=== PATIENT | male | born 1950 | race Caucasian/White ===

== ENCOUNTER 2017-07-28 15:48 | Inpatient (IN) | payer MEDICARE ==
[2017-07-28 16:00] VITALS: BP 132/90; PULSE 111; RESP 14; TEMP 99.2; O2SAT 100
[2017-07-28] MEDS: SODIUM CHLOR 0.9% 1000 ML INJ 1,000 ML IV SCH (16:39)
[2017-07-28] MEDS ORDERED: POTASSIUM CHLOR 40 MEQ PREMIX 100 ML IV PRN ×2 (16:45)
[2017-07-28] MEDS ORDERED: MAGNESIUM OXIDE 400 MG TAB PO PRN (16:45)
[2017-07-28] MEDS ORDERED: BISACODYL 10 MG SUPP RECTAL PRN (16:45)
[2017-07-28] MEDS ORDERED: MAGNESIUM SULFATE INJ 2 GM in SODIUM CHLORIDE 0.9% INJ 96 ML IV PRN (16:45)
[2017-07-28] MEDS ORDERED: POTASSIUM CHLORIDE 25 MEQ EFFERVESCENT TAB PO PRN (16:45)
[2017-07-28] MEDS ORDERED: POTASSIUM CHLOR 20 MEQ PREMIX 100 ML IV PRN ×2 (16:45)
[2017-07-28] MEDS ORDERED: LACTULOSE SYRUP 20 GM/30 ML CUP PO PRN (16:45)
[2017-07-28] MEDS ORDERED: NURSING INFORMATION XX SCH (16:45)
[2017-07-28] MEDS ORDERED: SENNOSIDES 8.6 MG TAB PO PRN (16:45)
[2017-07-28] MEDS ORDERED: POTASSIUM PHOSPHATE INJ 30 MMOL in SODIUM CHLOR 0.9% 250 ML INJ 250 ML IV PRN (16:45)
[2017-07-28] MEDS ORDERED: SODIUM PHOSPHATE INJ 30 MMOL in SODIUM CHLOR 0.9% 250 ML INJ 240 ML IV PRN (16:45)
[2017-07-28] MEDS ORDERED: MAGNESIUM SULFATE INJ 4 GM in SODIUM CHLORIDE 0.9% INJ 92 ML IV PRN (16:45)
[2017-07-28] MEDS ORDERED: ACETAMINOPHEN 325 MG TAB PO PRN (16:45)
[2017-07-28] MEDS ORDERED: POTASSIUM PHOSPHATE MONOBASIC 500 MG TAB PO/TUBE PRN (16:45)
[2017-07-28] MEDS ORDERED: MAGNESIUM HYDROXIDE SUSP 30 ML CUP PO PRN (16:45)
[2017-07-28] MEDS ORDERED: RESP: ALBUTEROL 2.5 MG/IPRATROPIUM 0.5 MG NEB (PRN) INH (16:45)
[2017-07-28] MEDS ORDERED: oxyCODONE/ACETAMINOPHEN 5 MG/325 MG TAB PO PRN (16:45)
[2017-07-28] MEDS ORDERED: ONDANSETRON HCL 4 MG/2 ML VIAL IV PUSH PRN (16:45)
[2017-07-28] MEDS ORDERED: CHLORHEXIDINE GLUCONATE 2 % 1 PACK (2 CLOTHS) TOP PRN (16:45)
[2017-07-28] MEDS ORDERED: POTASSIUM PHOSPHATE MONOBASIC 500 MG TAB PO PRN (16:45)
--- NOTE | 2017-07-28 16:51 | HHI.HP ---
HPI Service Critical Care Medicine Primary Care Physician Unknown Admission Diagnosis Tonsil abscess Diagnosis: Chief Complaint: Sore throat, difficulty swallowing Travel History International Travel<30 Days: No Contact w/Intl Traveler <30 Da: No Traveled to Known Affected Are: No History of Present Illness 67-year-old gentleman from [facility] presented to the [facility] emergency department this morning with a 3 day history of worsening sore throat and difficulty swallowing. He is tender to the external surface of his right neck as well. Neck CT reveals a abscess in the region of the right palatine tonsil measuring 2 cm x 3.2 cm x 2.3 cm. Noteworthy is that there is considerable surrounding adenopathy including the upper mediastinum. He received antibiotics in the form of clindamycin and steroids and was transferred to the [facility] at [facility] where I met him on his arrival. He is indeed having difficulty swallowing although his airway is widely patent. His immediate care will be complicated by chronic Coumadin use for permanent atrial fibrillation and porcine aortic valve replacement. He is also on dual antiplatelet therapy in the form of aspirin and Plavix for coronary artery stents. A permanent pacemaker/defibrillator is in place. Th pertinent laboratory from today at [facility] includes white blood cell count 13,100, hematocrit 40.7, platelet count 183,000. Prothrombin time is 15.7 and INR 1.4. Creatinine is 1.01 and BUN 13. Next. The gentleman is breathing comfortably now but does have shortness of breath with exertion. [facility] Review of Systems Constitutional: DENIES: Diaphoretic episodes, Fatigue, Fever, Weight gain, Weight loss, Chills, Dizziness, Change in appetite, Night Sweats Endocrine: DENIES: Heat/cold intolerance, Polydipsia, Polyuria, Polyphagia Eyes: DENIES: Blurred vision, Diplopia, Eye inflammation, Eye pain, Vision loss , Photosensitivity, Double Vision Ears, nose, mouth, throat: COMPLAINS OF: Throat pain, Hoarseness Respiratory: COMPLAINS OF: Shortness of breath Cardiovascular: COMPLAINS OF: Dyspnea on Exertion Gastrointestinal: DENIES: Abdominal pain, Black stools, Bloody stools, Constipation, Diarrhea, Nausea, Vomiting, Difficulty Swallowing, Anorexia Hematologic/lymphatic: DENIES: Bruising, Lymphadenopathy Psychiatric: DENIES: Anxiety, Confusion, Mood changes, Depression, Hallucinations, Agitation, Suicidal Ideation, Homicidal Ideation, Delusions Past Family Social History Allergies: Coded Allergies: Penicillins (Verified Allergy, Severe, Anaphylaxis, 07/28/17) Past Medical History Atrial fibrillation, permanent Permanent pacemaker/cardio defibrillator next Prosthetic aortic valve, porcine Coronary artery disease, stents Reported Medications Medications: 1. Aspirin 81 mg daily 2. Carvedilol 3.12 mg p.o. twice daily 3. Plavix 75 mg p.o. daily 4. Cyclobenzaprine 5 mg p.o. nightly 5. Furosemide 20 mg p.o. daily 6. Lisinopril 2.5 mg p.o. daily 6. Trazodone 50 mg p.o. at bedtime Physical Exam Vital Signs Vital Signs Date Time Temp Pulse Resp B/P (MAP) Pulse Ox O2 Delivery O2 Flow Rate FiO2 07/28/17 16:00 99.2 111 14 132/90 (104) 100 07/28/17 16:00 100 Nasal Cannula 4.00 07/28/17 16:00 111 Physical Exam General: Anxious middle-aged man Head: Atraumatic, normal Throat: Generalized swelling right tonsil region, erythematous mucosa. Neck: Supple, right anterior triangle tender to palpation. Tender lymph nodes palpable. Constant gurgling sounds but he is able to move air well. Lungs: Few crackles, good bilateral air movement, light wheezes. Heart: Regular rate and rhythm, 2/6 systolic murmur high right sternal border, neck veins are full but not tensely distended. Abdomen: Large, soft, nondistended, no guarding, bowel sounds are present. Extremities: Warm well perfused Neuro: Conversant but hoarse speech. Oriented 3 and cooperative. Moves 4 limbs with 5/5 strength. Alert Caprini VTE Risk Assessment Caprini VTE Risk Assessment: Mod/High Risk (score >= 2) VTE Pharm Contraindication: High risk for bleeding Caprini Risk Assessment Model Point Value = 1 Point Value = 2 Point Value = 3 Point Value = 5 Age 41-60 Minor surgery BMI > 25 kg/m2 Swollen legs Varicose veins or History of unexplained or recurrent spontaneous Oral contraceptives or hormone replacement Sepsis (< 1 month) Serious lung disease, including pneumonia (< 1 month) Abnormal pulmonary function Acute myocardial infarction Congestive heart failure (< 1 month) History of inflammatory bowel disease Medical patient at bed rest Age 61-74 Arthroscopic surgery Major open surgery (> 45 min) Laparoscopic surgery (> 45 min) Malignancy Confined to bed (> 72 hours) Immobilizing plaster cast Central venous access Age >= 75 History of VTE Family history of VTE Factor V Leiden Prothrombin [id number] Lupus anticoagulant Anticardiolipin antibodies Elevated serum homocysteine Heparin-induced thrombocytopenia Other congenital or acquired thrombophilia Stroke (< 1 month) Elective arthroplasty Hip, pelvis, or leg fracture Acute spinal cord injury (< 1 month) Prophylaxis Regimen Total Risk Factor Score Risk Level Prophylaxis Regimen 0-1 Low Early ambulation 2 Moderate Order ONE of the following: *Sequential Compression Device (SCD) *Heparin 5000 units SQ BID 3-4 Higher Order ONE of the following medications: *Heparin 5000 units SQ TID *Enoxaparin/Lovenox 40 mg SQ daily (WT < 150 kg, CrCl > 30 mL/min) *Enoxaparin/Lovenox 30 mg SQ daily (WT < 150 kg, CrCl > 10-29 mL/min) *Enoxaparin/Lovenox 30 mg SQ BID (WT < 150 kg, CrCl > 30 mL/min) AND/OR *Sequential Compression Device (SCD) 5 or more Highest Order ONE of the following medications: *Heparin 5000 units SQ TID (Preferred with Epidurals) *Enoxaparin/Lovenox 40 mg SQ daily (WT < 150 kg, CrCl > 30 mL/min) *Enoxaparin/Lovenox 30 mg SQ daily (WT < 150 kg, CrCl > 10-29 mL/min) *Enoxaparin/Lovenox 30 mg SQ BID (WT < 150 kg, CrCl > 30 mL/min) AND *Sequential Compression Device (SCD) Assessment and Plan Assessment and Plan Assessment: 1. Right tonsillar abscess. 2. Upper airway obstruction. 3. Paroxysmal atrial fibrillation. 4. Coronary artery disease status post stent placement, DAPT 5. Permanent pacemaker defibrillator. 6. Status post aortic valve replacement, bioprosthesis 7. History of systolic heart failure. 8. Essential hypertension. Plan: 1. Clindamycin antibiotic therapy. 2. Strep antigen 3. Limit to liquid diet. 4. Decadron scheduled. 5. Pepcid for GI ulcer prophylaxis. 6. SCDs for DVT prophylaxis. 7. Continue daily diuretic therapy. 8. Cardiac echo to assess residual ventricular function. 9. Airway precautions. 10. Intravenous morphine for pain control. Overall impression: This gentleman is critically ill with an acute peritonsillar abscess and significant neck swelling. He is drooling and has had difficulty swallowing for several days. He is not choking on his secretions but his airway is clearly compromised. Further he has chronic systolic heart failure and appears to have light wheezing. Residual left ventricular function should be assessed. Dual antiplatelet therapy makes bleeding problems predictable and we might try to delay a day or 2 if necessary. Rather than purposely reverse his warfarin anticoagulation it may be prudent to hold the drug and allow it to receive the effect naturally. Critical care 45 minutes aside from procedures Ty Guillory MD July 28, 2017 16:51
[2017-07-28] MEDS ORDERED: MORPHINE SULFATE 4 MG/ML INJ IV PUSH PRN (17:30)
[2017-07-28] MEDS: DEXAMETHASONE SOD PHOS 4 MG/ML VIAL IV PUSH SCH (17:57)
[2017-07-28] MEDS ORDERED: PILL SPLITTER OTHER PRN (18:00)
--- NOTE | 2017-07-28 18:22 | RADRPT ---
EXAM DATE/TIME: 07/28/2017 17:41 [place] COMPARISON: No previous studies available for comparison. INDICATIONS : Shortness of breath. MEDICAL HISTORY : None. SURGICAL HISTORY : Pacemaker. ENCOUNTER: Initial ACUITY: 1 day PAIN SCORE: 0/10 LOCATION: Bilateral chest FINDINGS: There is interstitial infiltrates bilaterally. The heart size is mildly enlarged. No significant pleu ral effusions are seen. There is evidence of previous cardiothoracic surgery. There is a pacemaker wi re in the left chest. No pneumothorax. CONCLUSION: Bilateral interstitial infiltrates suggestive of either pulmonary edema versus pneumonia. Dennis Evans MD on July 28, 2017 at 18:19 Board Certified Radiologist. This report was verified electronically.
--- NOTE | 2017-07-28 18:35 | EKG ---
Date Performed: 07/28/2017 Time Performed: 17:00:15 PTAGE: 67 years EKG: SINUS TACHYCARDIA MODERATE INTRAVENTRICULAR CONDUCTION DELAY ST DEVIATION AND MODERATE T-WA VE ABNORMALITY ABNORMAL ECG NO PREVIOUS TRACING DOCTOR: Leighann Gutierrez Interpretating Date/Time 07/28/2017 18:33:55
[2017-07-28] MEDS: RESP: ALBUTEROL 2.5 MG/IPRATROPIUM 0.5 MG NEB (SCH) NEB (19:59)
[2017-07-28 20:00] VITALS: BP 127/82; PULSE 100; RESP 25; TEMP 99.3; O2SAT 100; O2SAT 99
[2017-07-28] MEDS: CARVEDILOL 3.125 MG TAB PO SCH (20:02)
[2017-07-28] MEDS: CLINDAMYCIN 900 MG/NS PREMIX 50 ML IV SCH (20:02)
[2017-07-28] MEDS: CYCLOBENZAPRINE HCL 10 MG TAB PO SCH (20:02)
[2017-07-28] MEDS: DOCUSATE SODIUM 50 MG/SENNA 8.6 MG TAB PO SCH (20:03)
[2017-07-28] MEDS: FAMOTIDINE 20 MG TAB PO SCH (20:03)
[2017-07-28] MEDS: traZODone HCL 50 MG TAB PO SCH (20:03)
[2017-07-28] MEDS: MAGNESIUM SULFATE 1 GM PREMIX 100 ML IV SCH ×2 (21:46→22:30)
[2017-07-28 22:00] VITALS: PULSE 96
[2017-07-29] VITALS (18 sets, daily range): BP systolic 100–106; BP diastolic 59–72; PULSE 74–94; RESP 12–24; TEMP 97.4–99.5; O2SAT 93–100
[2017-07-29] MEDS: DEXAMETHASONE SOD PHOS 4 MG/ML VIAL IV PUSH SCH ×4 (01:08→18:10)
[2017-07-29] MEDS: CLINDAMYCIN 900 MG/NS PREMIX 50 ML IV SCH ×4 (01:09→19:42)
[2017-07-29 03:37] LABS: AUTOMATED NEUTROPHIL # 12.5 TH/MM3 (1.8-7.7); BASOPHIL # 0.3 TH/MM3 (0-0.2); BASOPHIL % 2.1 % (0.0-2.0); HEMATOCRIT 38.5 % (39.0-51.0); HEMOGLOBIN 12.6 GM/DL (13.0-17.0); LYMPH % 3.1 % (9.0-44.0); LYMPHOCYTE # 0.4 TH/MM3 (1.0-4.8); MEAN CELL VOLUME 85.8 FL (80.0-100.0); MEAN CORPUSCULAR HGB CONC 32.7 % (32.0-36.0); MEAN PLATELET VOLUME 9.2 FL (7.0-11.0); MONO % 2.3 % (0.0-8.0); MONOCYTE # 0.3 TH/MM3 (0-0.9); NEUT % 92.5 % (16.0-70.0); PLATELET COUNT 175 TH/MM3 (150-450); RED BLOOD COUNT 4.48 MIL/MM3 (4.50-5.90); RED CELL DISTRIBUTION WIDTH 16.7 % (11.6-17.2); WHITE BLOOD COUNT 13.5 TH/MM3 (4.0-11.0)
[2017-07-29 03:45] LABS: INTERNATIONAL NORMALIZED RATIO 1.3 RATIO; PROTHROMBIN TIME - PATIENT 13.2 SEC (9.8-11.6)
[2017-07-29] MEDS: RESP: ALBUTEROL 2.5 MG/IPRATROPIUM 0.5 MG NEB (SCH) NEB ×4 (03:46→19:24)
[2017-07-29] MEDS: CHLORHEXIDINE GLUCONATE 2 % 1 PACK (2 CLOTHS) TOP SCH (04:00)
[2017-07-29 04:04] LABS: BICARBONATE 29.3 MEQ/L (21.0-32.0); CALCIUM 8.5 MG/DL (8.5-10.1); CREATININE 1.04 MG/DL (0.60-1.30)
[2017-07-29] MEDS: SODIUM CHLOR 0.9% 1000 ML INJ 1,000 ML IV SCH ×2 (04:34→16:29)
--- NOTE | 2017-07-29 07:09 | HHI.CCPN ---
Subjective Remarks/Hospital Course 67-year-old gentleman from [facility] presented to the [facility] emergency department this morning with a 3 day history of worsening sore throat and difficulty swallowing. He is tender to the external surface of his right neck as well. Neck CT reveals a abscess in the region of the right palatine tonsil measuring 2 cm x 3.2 cm x 2.3 cm. Noteworthy is that there is considerable surrounding adenopathy including the upper mediastinum. He received antibiotics in the form of clindamycin and steroids and was transferred to the [facility] at [facility] where I met him on his arrival. He is indeed having difficulty swallowing although his airway is widely patent. His immediate care will be complicated by chronic Coumadin use for permanent atrial fibrillation and porcine aortic valve replacement. He is also on dual antiplatelet therapy in the form of aspirin and Plavix for coronary artery stents. A permanent pacemaker/defibrillator is in place. Th pertinent laboratory from today at [facility] includes white blood cell count 13,100, hematocrit 40.7, platelet count 183,000. Prothrombin time is 15.7 and INR 1.4. Creatinine is 1.01 and BUN 13. Next. The gentleman is breathing comfortably now but does have shortness of breath with exertion. [facility] 07/29: Persistent pain right neck. Leukocytosis. Protects airway. Objective Vital Signs Date Time Temp Pulse Resp B/P (MAP) Pulse Ox O2 Delivery O2 Flow Rate FiO2 07/29/17 06:00 74 07/29/17 04:00 97.7 20 103/61 (75) 99 07/29/17 03:46 Nasal Cannula 2.00 Intake and Output 07/29/17 07/29/17 07/30/17 08:00 16:00 00:00 Intake Total 0 ml Balance 0 ml Result Diagram: 07/29/17 0228 07/29/17 0228 Other Results Microbiology Date/Time Source Procedure Growth Status 07/28/17 18:06 Throat Group A Streptococcus Screen (MELLISSA) - Final Complete Objective Remarks General: Anxious middle-aged man Head: Atraumatic, normal Throat: Generalized swelling right tonsil region, erythematous mucosa. Neck: Supple, right anterior triangle tender to palpation. Tender lymph nodes palpable. Persistent gurgling sounds but he is able to move air well. Frequent sictioning. Lungs: Few crackles, good bilateral air movement, light wheezes. Heart: Regular rate and rhythm, 3/6 systolic murmur high right sternal border, neck veins are full but not tensely distended. Abdomen: Large, soft, nondistended, no guarding, bowel sounds are present. Extremities: Warm, well perfused Neuro: Conversant but hoarse speech. Oriented 3 and cooperative. Moves 4 limbs with 5/5 strength. Alert A/P Assessment and Plan Assessment: 1. Right tonsillar abscess. 2. Upper airway obstruction. 3. Paroxysmal atrial fibrillation. 4. Coronary artery disease status post stent placement, DAPT 5. Permanent pacemaker defibrillator. 6. Status post aortic valve replacement, bioprosthesis 7. History of systolic heart failure. 8. Essential hypertension. Plan: 1. Clindamycin antibiotic therapy. 2. Strep antigen 3. Limit to liquid diet. 4. Decadron scheduled. 5. Pepcid for GI ulcer prophylaxis. 6. SCDs for DVT prophylaxis. 7. Continue daily diuretic therapy. 8. Cardiac echo to assess residual ventricular function. 9. Airway precautions. 10. Intravenous morphine for pain control. 11. Hold ASA and plavix. Overall impression: This gentleman is critically ill with an acute peritonsillar abscess and significant neck swelling. He is drooling and has had difficulty swallowing for several days. He is not choking on his secretions but his airway is clearly compromised. Further he has chronic systolic heart failure and light wheezing, improved with diuretics. Residual left ventricular function should be assessed. Hold dual antiplatelet therapy. Rather than purposely reverse his warfarin anticoagulation it may be prudent to hold the drug and allow it to receive the effect naturally -> normal INR today. Critical care 39 minutes aside from procedures Ty Guillory MD July 29, 2017 07:09
[2017-07-29] MEDS ORDERED: FUROSEMIDE 20 MG/2 ML VIAL IV PUSH SCH ×2 (08:00→09:00)
[2017-07-29] MEDS: FAMOTIDINE 20 MG TAB PO SCH ×2 (08:46→19:43)
[2017-07-29] MEDS: CARVEDILOL 3.125 MG TAB PO SCH ×2 (08:46→19:42)
[2017-07-29] MEDS: DOCUSATE SODIUM 50 MG/SENNA 8.6 MG TAB PO SCH ×2 (08:46→19:43)
[2017-07-29] MEDS: FUROSEMIDE 40 MG/4 ML VIAL IV PUSH SCH (08:47)
[2017-07-29] MEDS: traZODone HCL 50 MG TAB PO SCH (19:42)
[2017-07-29] MEDS: CYCLOBENZAPRINE HCL 10 MG TAB PO SCH (19:43)
[2017-07-30] VITALS (11 sets, daily range): BP systolic 100–120; BP diastolic 61–71; PULSE 78–99; RESP 12–21; TEMP 97.9–98.4; O2SAT 94–100
[2017-07-30] MEDS: CLINDAMYCIN 900 MG/NS PREMIX 50 ML IV SCH ×4 (01:14→21:24)
[2017-07-30] MEDS: DEXAMETHASONE SOD PHOS 4 MG/ML VIAL IV PUSH SCH ×4 (01:14→22:23)
[2017-07-30] MEDS: RESP: ALBUTEROL 2.5 MG/IPRATROPIUM 0.5 MG NEB (SCH) NEB ×3 (03:15→15:58)
[2017-07-30] MEDS: CHLORHEXIDINE GLUCONATE 2 % 1 PACK (2 CLOTHS) TOP SCH (04:14)
[2017-07-30 04:47] LABS: INTERNATIONAL NORMALIZED RATIO 1.6 RATIO; PROTHROMBIN TIME - PATIENT 16.4 SEC (9.8-11.6)
[2017-07-30 05:14] LABS: BICARBONATE 27.8 MEQ/L (21.0-32.0); CALCIUM 8.4 MG/DL (8.5-10.1); CREATININE 1.02 MG/DL (0.60-1.30)
[2017-07-30] MEDS: SODIUM CHLOR 0.9% 1000 ML INJ 1,000 ML IV SCH (05:44)
[2017-07-30] MEDS ORDERED: RESP: ALBUTEROL 2.5 MG/3 ML NEB (PRN) NEB (08:45)
--- NOTE | 2017-07-30 08:46 | HHI.CCPN ---
Subjective Remarks/Hospital Course 67-year-old gentleman from [facility] presented to the [facility] emergency department this morning with a 3 day history of worsening sore throat and difficulty swallowing. He is tender to the external surface of his right neck as well. Neck CT reveals a abscess in the region of the right palatine tonsil measuring 2 cm x 3.2 cm x 2.3 cm. Noteworthy is that there is considerable surrounding adenopathy including the upper mediastinum. He received antibiotics in the form of clindamycin and steroids and was transferred to the [facility] at [facility] where I met him on his arrival. He is indeed having difficulty swallowing although his airway is widely patent. His immediate care will be complicated by chronic Coumadin use for permanent atrial fibrillation and porcine aortic valve replacement. He is also on dual antiplatelet therapy in the form of aspirin and Plavix for coronary artery stents. A permanent pacemaker/defibrillator is in place. Th pertinent laboratory from today at [facility] includes white blood cell count 13,100, hematocrit 40.7, platelet count 183,000. Prothrombin time is 15.7 and INR 1.4. Creatinine is 1.01 and BUN 13. Next. The gentleman is breathing comfortably now but does have shortness of breath with exertion. [facility]. 07/29: Persistent pain right neck. Leukocytosis. Protects airway. SUBJECTIVE: 07/30: Voice much improved today. Adequately swallows. Protecting airway. Denies chest pain or shortness of breath. Cleared for regular diet per ENT. Objective Vital Signs Date Time Temp Pulse Resp B/P (MAP) Pulse Ox O2 Delivery O2 Flow Rate FiO2 07/30/17 06:00 80 07/30/17 04:00 98.1 21 102/64 (77) 100 07/29/17 19:25 Nasal Cannula 2.00 07/29/17 16:35 21 Intake and Output 07/30/17 07/30/17 07/30/17 07:59 15:59 23:59 Intake Total 240 ml Output Total 650 ml Balance -410 ml Result Diagram: 07/29/17 0228 07/30/17 0350 Other Results Microbiology Date/Time Source Procedure Growth Status 07/28/17 18:06 Throat Group A Streptococcus Screen - Preliminary NO BETA STREPTOCOCCI ISOLATED AT 24 H... Resulted Imaging Last Impressions Chest X-Ray 07/28/17 0000 Signed Impressions: Service Date/Time: Friday, July 28, 2017 17:41 - CONCLUSION: Bilateral interstitial infiltrates suggestive of either pulmonary edema versus pneumonia. Dennis Evans MD Objective Remarks General: 67-year-old AA male currently resting in bed in no acute distress Head: Atraumatic, normal Throat: Generalized swelling right tonsil region, erythematous mucosa. Neck: Supple, right anterior triangle tender to palpation. Tender lymph nodes palpable. Lungs: Few crackles, good bilateral air movement, light wheezes. Heart: Regular rate and rhythm, 3/6 systolic murmur high right sternal border, Abdomen: Large, soft, nondistended, no guarding, bowel sounds are present. Extremities: Warm, well perfused Neuro: Conversant but hoarse speech. Oriented 3 and cooperative. Moves 4 limbs with 5/5 strength. Alert Urinary Catheter: No Assessment to: Continue Vascular Central Line Catheter: No Assessment to: Continue A/P Assessment and Plan Assessment: 1. Right tonsillar abscess. 2. Upper airway obstruction. 3. Paroxysmal atrial fibrillation. 4. Coronary artery disease status post stent placement, DAPT 5. Permanent pacemaker defibrillator. 6. Status post aortic valve replacement, bioprosthesis 7. History of systolic heart failure. 8. Essential hypertension. 9. Leukocytosis 10. Normocytic anemia 11. Insomnia Plan: 1. Clindamycin antibiotic therapy at 900 mg IV every 6 hours. 2. Strep antigen was negative 3. Heart healthy diet. 4. Decadron scheduled 4 mg IV every 6 hours. 5. Pepcid for GI ulcer prophylaxis. 6. SCDs for DVT prophylaxis. 7. Continue daily diuretic therapy. 8. Cardiac echo to assess residual ventricular function. 9. Airway precautions. 10. Percocets/intravenous morphine for pain control. 11. Hold ASA and plavix. 12. Furosemide 40 mg IV daily gentle diuresis 13. Continue trazodone 50 mg at night 14. Continue carvedilol 3.2 mg p.o. twice daily for hypertension Level 2 follow-up Patient was evaluated by Dr. Peralta/ENT. Okay to transfer to floor. Likely okay home in a.m. 5/15 on antibiotics and steroid taper. Tod Bliss MD July 30, 2017 08:46
[2017-07-30] MEDS: DOCUSATE SODIUM 50 MG/SENNA 8.6 MG TAB PO SCH ×2 (09:00→21:24)
[2017-07-30] MEDS: CARVEDILOL 3.125 MG TAB PO SCH ×2 (09:08→21:24)
[2017-07-30] MEDS: FAMOTIDINE 20 MG TAB PO SCH ×2 (09:08→21:24)
[2017-07-30] MEDS: FUROSEMIDE 40 MG/4 ML VIAL IV PUSH SCH (09:08)
[2017-07-30] MEDS: traZODone HCL 50 MG TAB PO SCH (21:24)
[2017-07-30] MEDS: CYCLOBENZAPRINE HCL 10 MG TAB PO SCH (21:47)
[2017-07-31] VITALS: BP 99/70; PULSE 93; RESP 20; TEMP 97.7; O2SAT 96
[2017-07-31] MEDS: CLINDAMYCIN 900 MG/NS PREMIX 50 ML IV SCH ×3 (02:45→14:45)
[2017-07-31] MEDS: CHLORHEXIDINE GLUCONATE 2 % 1 PACK (2 CLOTHS) TOP SCH (03:22)
[2017-07-31 04:52] LABS: AUTOMATED NEUTROPHIL # 11.4 TH/MM3 (1.8-7.7); BASOPHIL % 0.1 % (0.0-2.0); HEMATOCRIT 36.2 % (39.0-51.0); HEMOGLOBIN 11.9 GM/DL (13.0-17.0); LYMPH % 9.3 % (9.0-44.0); LYMPHOCYTE # 1.2 TH/MM3 (1.0-4.8); MEAN CELL VOLUME 84.3 FL (80.0-100.0); MEAN CORPUSCULAR HEMOGLOBIN 27.7 PG (27.0-34.0); MEAN CORPUSCULAR HGB CONC 32.9 % (32.0-36.0); MEAN PLATELET VOLUME 9.5 FL (7.0-11.0); MONO % 3.9 % (0.0-8.0); MONOCYTE # 0.5 TH/MM3 (0-0.9); NEUT % 86.7 % (16.0-70.0); PLATELET COUNT 205 TH/MM3 (150-450); RED BLOOD COUNT 4.29 MIL/MM3 (4.50-5.90); RED CELL DISTRIBUTION WIDTH 16.9 % (11.6-17.2); WHITE BLOOD COUNT 13.1 TH/MM3 (4.0-11.0)
[2017-07-31] MEDS: DEXAMETHASONE SOD PHOS 4 MG/ML VIAL IV PUSH SCH ×2 (04:52→14:45)
[2017-07-31 04:54] LABS: INTERNATIONAL NORMALIZED RATIO 1.4 RATIO; PROTHROMBIN TIME - PATIENT 13.7 SEC (9.8-11.6)
[2017-07-31] MEDS: RESP: ALBUTEROL 2.5 MG/IPRATROPIUM 0.5 MG NEB (SCH) NEB ×3 (05:41→15:42)
[2017-07-31 05:56] LABS: AST (GOT) 40 U/L (15-37); BLOOD UREA NITROGEN 22 MG/DL (7-18); CALCIUM 8.4 MG/DL (8.5-10.1); CHLORIDE 103 MEQ/L (98-107); CREATININE 1.14 MG/DL (0.60-1.30); GLOMERULAR FILTRATION RATE 64 ML/MIN (>89); GLUCOSE,RANDOM 127 MG/DL (74-106); MAGNESIUM 2.3 MG/DL (1.5-2.5); SODIUM (NA) 140 MEQ/L (136-145)
[2017-07-31 05:57] LABS: ALT (GPT) 34 U/L (12-78); PHOSPHORUS 2.7 MG/DL (2.5-4.9)
[2017-07-31 05:59] LABS: ALKALINE PHOSPHATASE 189 U/L (45-117); TOTAL BILIRUBIN ADULT 0.5 MG/DL (0.2-1.0); TOTAL PROTEIN 7.6 GM/DL (6.4-8.2)
[2017-07-31 08:00] VITALS: BP 106/63; PULSE 87; RESP 19; TEMP 97.6; O2SAT 96
[2017-07-31] MEDS: FUROSEMIDE 40 MG/4 ML VIAL IV PUSH SCH (08:46)
[2017-07-31] MEDS: CARVEDILOL 3.125 MG TAB PO SCH (08:47)
[2017-07-31] MEDS: FAMOTIDINE 20 MG TAB PO SCH (08:47)
[2017-07-31] MEDS: DOCUSATE SODIUM 50 MG/SENNA 8.6 MG TAB PO SCH (08:47)
[2017-07-31 12:00] VITALS: BP 111/67; PULSE 92; RESP 19; TEMP 97.7; O2SAT 94
[2017-07-31] MEDS ORDERED: PRED5PAK PO (14:41)
[2017-07-31] MEDS ORDERED: CLIN300C5 PO (14:41)
--- NOTE | 2017-07-31 14:49 | HHI.DCPOC ---
Discharge Care Plan Diagnosis: (1) Tonsillar abscess (2) Paroxysmal atrial fibrillation (3) CAD (coronary artery disease) (4) Chronic systolic heart failure (5) HTN (hypertension) (6) Anemia Goals to Promote Your Health * To prevent worsening of your condition and complications * To maintain your health at the optimal level Directions to Meet Your Goals Take your medications as prescribed Follow your dietary instruction Follow activity as directed Keep your appointments as scheduled Take your immunizations and boosters as scheduled If your symptoms worsen call your PCP, if no PCP go to Urgent Care Center or Emergency Room Smoking is Dangerous to Your Health. Avoid second hand smoke Call the 24-hour hour crisis hotline for domestic abuse at Delbert Wilkinson MD July 31, 2017 14:49
--- NOTE | 2017-07-31 14:57 | HHI.DS ---
Discharge Summary Admission Date July 28, 2017 at 15:48 Discharge Date: July 31, 2017 Admitting Diagnosis Tonsil abscess (1) Acute on chronic heart failure ICD Code: I50.9 - Heart failure, unspecified (2) Tonsillar abscess ICD Code: J36 - Peritonsillar abscess (3) CAD (coronary artery disease) ICD Code: I25.10 - Atherosclerotic heart disease of [place] coronary artery without angina pectoris Diagnosis: Secondary Status: Chronic (4) Paroxysmal atrial fibrillation ICD Code: I48.0 - Paroxysmal atrial fibrillation Diagnosis: Secondary Status: Chronic (5) Anemia ICD Code: D64.9 - Anemia, unspecified Diagnosis: Secondary Status: Chronic Procedures none Brief History - From Admission 67-year-old gentleman from [facility] presented to the [facility] emergency department this morning with a 3 day history of worsening sore throat and difficulty swallowing. He is tender to the external surface of his right neck as well. Neck CT reveals a abscess in the region of the right palatine tonsil measuring 2 cm x 3.2 cm x 2.3 cm. Noteworthy is that there is considerable surrounding adenopathy including the upper mediastinum. He received antibiotics in the form of clindamycin and steroids and was transferred to the [facility] at [facility] where I met him on his arrival. He is indeed having difficulty swallowing although his airway is widely patent. His immediate care will be complicated by chronic Coumadin use for permanent atrial fibrillation and porcine aortic valve replacement. He is also on dual antiplatelet therapy in the form of aspirin and Plavix for coronary artery stents. A permanent pacemaker/defibrillator is in place. Th pertinent laboratory from today at [facility] includes white blood cell count 13,100, hematocrit 40.7, platelet count 183,000. Prothrombin time is 15.7 and INR 1.4. Creatinine is 1.01 and BUN 13. Next. The gentleman is breathing comfortably now but does have shortness of breath with exertion. [facility] CBC/BMP: 07/31/17 0345 07/31/17 0345 Significant Findings Laboratory Tests Test 07/28/17 17:29 07/28/17 21:40 07/29/17 02:28 07/30/17 03:50 White Blood Count 13.5 TH/MM3 (4.0-11.0) Red Blood Count 4.48 MIL/MM3 (4.50-5.90) Hemoglobin 12.6 GM/DL (13.0-17.0) Hematocrit 38.5 % (39.0-51.0) Neutrophils (%) (Auto) 92.5 % (16.0-70.0) Lymphocytes (%) (Auto) 3.1 % (9.0-44.0) Basophils (%) (Auto) 2.1 % (0.0-2.0) Neutrophils # (Auto) 12.5 TH/MM3 (1.8-7.7) Lymphocytes # (Auto) 0.4 TH/MM3 (1.0-4.8) Basophils # (Auto) 0.3 TH/MM3 (0-0.2) Prothrombin Time 13.2 SEC (9.8-11.6) 16.4 SEC (9.8-11.6) Random Glucose 123 MG/DL (74-106) 128 MG/DL (74-106) Estimat Glomerular Filtration Rate 71 ML/MIN (>89) 73 ML/MIN (>89) B-Type Natriuretic Peptide 525 PG/ML (0-100) 420 PG/ML (0-100) Calcium Level 8.4 MG/DL (8.5-10.1) Test 07/31/17 03:45 White Blood Count 13.1 TH/MM3 (4.0-11.0) Red Blood Count 4.29 MIL/MM3 (4.50-5.90) Hemoglobin 11.9 GM/DL (13.0-17.0) Hematocrit 36.2 % (39.0-51.0) Neutrophils (%) (Auto) 86.7 % (16.0-70.0) Neutrophils # (Auto) 11.4 TH/MM3 (1.8-7.7) Prothrombin Time 13.7 SEC (9.8-11.6) Blood Urea Nitrogen 22 MG/DL (7-18) Random Glucose 127 MG/DL (74-106) Albumin 3.0 GM/DL (3.4-5.0) Calcium Level 8.4 MG/DL (8.5-10.1) Alkaline Phosphatase 189 U/L (45-117) Aspartate Amino Transf (AST/SGOT) 40 U/L (15-37) Estimat Glomerular Filtration Rate 64 ML/MIN (>89) Imaging Last Impressions Chest X-Ray 07/28/17 0000 Signed Impressions: Service Date/Time: Friday, July 28, 2017 17:41 - CONCLUSION: Bilateral interstitial infiltrates suggestive of either pulmonary edema versus pneumonia. Dennis Evans MD PE at Discharge AAOx3 Clear lungs BL no peritonsillar swelling observed S1S2 RRR abdomen soft, ne, nd no edema in lower extremities Pt update on day of discharge The patient denies shortness of breath, chest pain. Denies fevers or chills. The patient states that he has no longer pain on swallowing. Hospital Course The patient was admitted to the intensive care unit and initially managed by the aluminum container tester. The patient was treated with IV Decadron, IV clindamycin. Chest x-ray also as described above show showed some signs of congestion and infiltrate. These images consistent with acute on chronic systolic heart failure and possible pneumonia. The patient was also treated with oxygen and IV diuretics. Patient's aspirin and warfarin for the patient's chronic atrial fibrillation were held. The patient's clinical condition improved within the next couple days. On day of discharge the patient is not complaining of neck swelling, is able to swallow without pain and does not have any fevers. The patient will be discharged on oral antibiotics and a steroid taper. The patient was instructed to resume all home medications including Coumadin and aspirin. Pt Condition on Discharge: Stable Discharge Disposition: Discharge Home Discharge Time: <= 30 minutes Discharge Instructions DIET: Follow Instructions for: Heart Healthy Diet Activities you can perform: Regular-No Restrictions Follow up Referrals: [facility] New Medications: Clindamycin (Clindamycin) 300 Mg Cap 300 MG PO Q6H for Infection, #16 CAP 0 Refills Prednisone (21) 5 mg tab Dose Pack (Prednisone (21) 5 mg tab Dose Pack) 5 Mg Dspk 5 MG PO DIRECTED for Inflammation, #1 DSPK 0 Refills Delbert Wilkinson MD July 31, 2017 14:57
--- NOTE | 2017-07-31 17:33 | ECHRPT ---
Indication: Heart failure, unspecified CONCLUSIONS Mildly dilated left ventricle. Mild concentric left ventricular hypertrophy. The left ventricular systolic function is severely reduced with an estimated ejection fraction in th e range of 30-35%. There is global left ventricular dysfunction. The right ventricular size is normal. The left atrial size is moderately dilated. There is a pacemaker wire present in the right atrial cavity. The aortic root and proximal ascending aorta are not well visualized. Moderate mitral valve regurgitation. Normally functioning bioprosthetic aortic valve. There is mild tricuspid valve regurgitation. The estimated pulmonary arterial pressure is 42.3 mmHg. Trivial pulmonary valve regurgitation. The inferior vena cava is dilated. There is no pericardial effusion. BP: 102 / 64 HR: 80 Rhythm: MEASUREMENTS (Male / Female) Normal Values Technical Quality:Good 2D ECHO LV Diastolic Diameter PLAX 6.0 cm 4.2 - 5.9 / 3.9 - 5.3 cm LV Systolic Diameter PLAX 5.0 cm IVS Diastolic Thickness 1.9 cm 0.6 - 1.0 / 0.6 - 0.9 cm LVPW Diastolic Thickness 1.4 cm 0.6 - 1.0 / 0.6 - 0.9 cm LV Relative Wall Thickness 0.5 RV Internal Dim ED PLAX 3.2 cm LVOT Diameter 2.0 cm M-MODE Aortic Root Diameter MM 3.8 cm LA Systolic Diameter MM 5.8 cm LA Ao Ratio MM 1.5 AV Cusp Separation MM 1.6 cm DOPPLER AV Peak Velocity 222.0 cm/s AV Peak Gradient 19.7 mmHg AV Mean Gradient 12.0 mmHg AV Velocity Time Integral 45.5 cm LVOT Peak Velocity 56.4 cm/s LVOT Peak Gradient 1.3 mmHg LVOT Velocity Time Integral 9.8 cm AV Area Cont Eq vti 0.7 cm AV Area Cont Eq pk 0.8 cm Mitral E Point Velocity 97.7 cm/s Mitral A Point Velocity 67.9 cm/s Mitral E to A Ratio 1.4 LV E' Lateral Velocity 5.1 cm/s Mitral E to LV E' Lateral Ratio 19.3 TR Peak Velocity 284.0 cm/s TR Peak Gradient 32.3 mmHg Right Atrial Pressure 10.0 mmHg Pulmonary Artery Systolic Pressu 42.3 mmHg Right Ventricular Systolic Press 42.3 mmHg FINDINGS LEFT VENTRICLE Mildly dilated left ventricle. Mild concentric left ventricular hypertrophy. The left ventricular systolic function is severely reduced with an estimated ejection fraction in th e range of 30-35%. There is global left ventricular dysfunction. RIGHT VENTRICLE The right ventricular size is normal. LEFT ATRIUM The left atrial size is moderately dilated. RIGHT ATRIUM There is a pacemaker wire present in the right atrial cavity. The right atrial size is normal. ATRIAL SEPTUM Normal atrial septal thickness without atrial level shunting by limited color doppler interrogation. AORTA The aortic root and proximal ascending aorta are not well visualized. MITRAL VALVE Moderate mitral valve regurgitation. Structurally normal mitral valve. AORTIC VALVE Normally functioning bioprosthetic aortic valve. TRICUSPID VALVE There is mild tricuspid valve regurgitation. The estimated pulmonary arterial pressure is 42.3 mmHg. PULMONARY VALVE Trivial pulmonary valve regurgitation. VESSELS The inferior vena cava is dilated. PERICARDIUM There is no pericardial effusion. Raul Chavira MD, FACC (Electronically Signed) Final Date:31 Jul 2017 17:32
== END 2017-07-31 17:04 | disposition home or self-care (01) | DRG 152 ==
LOC: N03A 15:48 → N07A 07-30 16:12
PROVIDERS: ADMIT Family Medicine; ATTEND Family Medicine
DX: J36 Peritonsillar abscess (principal); I50.23 Acute on chronic systolic (congestive) heart failure; J18.9 Pneumonia, unspecified organism; I11.0 Hypertensive heart disease with heart failure; I48.0 Paroxysmal atrial fibrillation; I25.10 Atherosclerotic heart disease of native coronary artery without angina pectoris; J98.8 Other specified respiratory disorders; R59.9 Enlarged lymph nodes, unspecified; D64.9 Anemia, unspecified; G47.00 Insomnia, unspecified; Z79.01 Long term (current) use of anticoagulants; Z95.3 Presence of xenogenic heart valve; Z95.5 Presence of coronary angioplasty implant and graft; Z95.810 Presence of automatic (implantable) cardiac defibrillator
CPT/HCPCS: 71045; 80048; 80053; 83735; 83880; 84100; 84132; 85025; 85610; 85730; 87081; 87641; 87880; 93005; 93306; 94640; 94664; J1100; J1940; J2270; J3475; J7030